=== PATIENT | male | born 1985 | race Caucasian/White ===

== ENCOUNTER 2016-07-07 03:24 | Emergency (ER) | payer SELFPAY ==
[~2016-07-07] VITALS: Ht 165.1 cm; Wt 81.0 kg
[2016-07-07] MEDS ORDERED: BACITRACIN ZINC OINT UDPKT TOP ONE (05:00)
[2016-07-07] MEDS ORDERED: LIDOCAINE HCL 1%/EPI 1:200,000 30 ML VIAL MC ONE (05:00)
[2016-07-07] MEDS ORDERED: IBUPROFEN 800MG TABLET PO ONE (05:45)
[2016-07-07 06:06] VITALS: BP 134/84
== END 2016-07-07 06:11 | disposition home or self-care (01) ==
LOC: ER 03:36
DX: S01.01XA Laceration without foreign body of scalp, initial encounter (principal); X99.0XXA Assault by sharp glass, initial encounter; Y93.89 Activity, other specified; Y92.018 Other place in single-family (private) house as the place of occurrence of the external cause
CPT/HCPCS: 12001; 99283; Z7610